=== PATIENT | male | born 1980 | race Caucasian/White ===

== ENCOUNTER 2023-07-27 13:22 | Emergency (ER) | payer OTHER, SELFPAY ==
[2023-07-27 13:43] VITALS: BP 122/59; PULSE 78; RESP 16; TEMP 37.1; O2SAT 97; BMI 24.4
[2023-07-27] MEDS: TET,DIPH,PERTUSS(ACELL),VAC/PF 0.5 ML SYRINGE IM (14:38)
--- NOTE | 2023-07-27 14:48 | ED.WOUNDLAC ---
HPI - Wound/Laceration General Chief Complaint: Wound/Laceration Stated Complaint: Stepped on a nail Time Seen by Provider: 07/27/23 14:39 Source: patient Mode of arrival: Ambulatory History of Present Illness HPI narrative: Otherwise healthy 43-year-old male here for evaluation of an injury that he sustained when he stepped on a nail. He was wearing shoes at the time. It did occur while he was at work. It did puncture is right foot. The nail came out without fracturing. Has had some difficulty with walking. Related Data Previous Rx's Medication Instructions Recorded cephalexin 500 mg capsule 500 mg PO QID 7 days #28 caps 07/27/23 Allergies Allergy/AdvReac Type Severity Reaction Status Date / Time No Known Drug Allergies Allergy Verified 07/27/23 13:43 Review of Systems Musculoskeletal Musculoskeletal: Reports system reviewed and no additional complaints, except as documented Integumentary/Breasts Skin/Breast: Reports system reviewed and no additional complaints, except as documented Hematologic/Lymphatic On Anticoagulants: No Patient History Social History Smoking Status: Never smoker Smoking Status: Never smoker Substance Use Type: does not use Exam Initial Vital Signs Initial Vital Signs: Vital Signs Temperature 98.8 F 07/27/23 13:43 Pulse Rate 78 07/27/23 13:43 Respiratory Rate 16 07/27/23 13:43 Blood Pressure 122/59 L 07/27/23 13:43 Pulse Oximetry 97 07/27/23 13:43 Oxygen Delivery Method Room Air 07/27/23 13:43 Skin Other: Small puncture wound on the plantar aspect of the right foot. No surrounding erythema. No drainage. Extrem Other: Discomfort with palpation of the entrance wound on the bottom of the right foot. Course Orders Ordered: Discontinued Medications Diphtheria/Tetanus/Acell Pertussis (Tet,Diph,Pertuss(Acell),Vac/Pf 0.5 Ml Syringe) 0.5 ml IM .ONCE ONE Stop: 07/27/23 13:48 Last Admin: 07/27/23 14:38 Dose: 0.5 ml Documented By: GENTRY Vital Signs Vital signs: Vital Signs - 8 hr 07/27/23 13:43 Temperature 98.8 F Pulse Rate 78 Respiratory Rate 16 Blood Pressure 122/59 L Pulse Oximetry 97 Oxygen Delivery Method Room Air MDM - Wound/Laceration MDM Narrative Medical decision making narrative: His tetanus was updated. They have low suspicion for retained foreign body. We will start him on antibiotics because it did go through his shoe and was a puncture wound. He was given return precautions and follow-up instructions. He expressed understanding and agreement. Discharge Plan Departure Patient Disposition: Home Clinical Impression: Puncture wound Instructions: DI for Puncture Wound Activity Restrictions/Additional Instructions: Your tetanus was updated today. Start taking the antibiotics as directed. You can take showers like normal. Return to the emergency department for new or worsening symptoms. Prescriptions: New cephalexin 500 mg capsule 500 mg PO QID 7 Days Qty: 28 0RF Stand Alone Forms: Patient Portal/API
== END 2023-07-27 15:02 | disposition home or self-care (01) ==
PROVIDERS: Emergency Provider Emergency Medicine
DX: S91.331A Puncture wound without foreign body, right foot, initial encounter (principal); W45.0XXA Nail entering through skin, initial encounter; Z23 Encounter for immunization; Y99.0 Civilian activity done for income or pay
CPT/HCPCS: 90471; 99283; 90715

== ENCOUNTER 2023-09-15 20:20 | Emergency (ER) | payer OTHER, SELFPAY ==
[2023-09-15 20:29] VITALS: BP 126/75; PULSE 79; RESP 16; TEMP 36.8; O2SAT 97; BMI 25.3
--- NOTE | 2023-09-15 20:32 | DI.RAD.S_ITS ---
PROCEDURE: XR HAND LT MIN 3V INDICATIONS: fall TECHNIQUE: 3 views of the hand(s) acquired. COMPARISON: None. FINDINGS: Bones: There is a nondisplaced fracture involving the 5th proximal phalangeal shaft. Carpal bones are normally aligned. No suspicious bony lesions. Soft tissues: No suspicious soft tissue calcifications. IMPRESSION: Nondisplaced 5th proximal phalangeal shaft fracture. Dictated by: Paige Tse M.D. on 09/15/2023 at 22:27 Approved by: Paige Tse M.D. on 09/15/2023 at 22:28
--- NOTE | 2023-09-15 22:55 | ED.GENADULT ---
HPI - General Adult General Chief complaint: Extremity Injury, Upper Stated complaint: lt hand injury, swelling Time Seen by Provider: 09/15/23 22:48 Source: patient Mode of arrival: Ambulatory History of Present Illness HPI narrative: 43-year-old male who is here for evaluation of a left hand injury. Patient states he tripped in the parking lot landing on his left hand. Did not hit his head. No loss of consciousness. He is right-hand dominant. Related Data Allergies Allergy/AdvReac Type Severity Reaction Status Date / Time No Known Drug Allergies Allergy Verified 09/15/23 20:28 Review of Systems Constitutional Constitutional: Reports system reviewed and no additional complaints, except as documented Musculoskeletal Musculoskeletal: Reports system reviewed and no additional complaints, except as documented Integumentary/Breasts Skin/Breast: Reports system reviewed and no additional complaints, except as documented Neurologic Neurologic: Reports system reviewed and no additional complaints, except as documented Patient History Social History Smoking Status: Never smoker Smoking Status: Never smoker Substance Use Type: does not use Exam Initial Vital Signs Initial Vital Signs: Vital Signs Temperature 98.3 F 09/15/23 20:29 Pulse Rate 79 09/15/23 20:29 Respiratory Rate 16 09/15/23 20:29 Blood Pressure 126/75 09/15/23 20:29 Pulse Oximetry 97 09/15/23 20:29 Oxygen Delivery Method Room Air 09/15/23 20:29 HENMT Head: normal to inspection and normocephalic Skin Other: Bruising along the proximal aspect of the little finger of the left hand. Skin abrasions on the palm of his hand. Extrem Other: Discomfort with palpation and movement of left little finger. Procedures Orthopedic Splinting/Casting Injury #1: Side: left Upper Extremity Injury Location: finger Upper Extremity Immobilizer: aluminum form splint Post splinting neuro exam: intact Post splinting vascular exam: intact Placed by: Nursing Course Orders Ordered: ED Orders 09/15/23 20:32 XR hand LT min 3V Stat Vital Signs Vital signs: Vital Signs - 8 hr 09/15/23 20:29 Temperature 98.3 F Pulse Rate 79 Respiratory Rate 16 Blood Pressure 126/75 Pulse Oximetry 97 Oxygen Delivery Method Room Air Medical Decision Making Imaging Data Extremity x-ray #1: Radiologist's Impression: PROCEDURE: XR HAND LT MIN 3V INDICATIONS: fall TECHNIQUE: 3 views of the hand(s) acquired. COMPARISON: None. FINDINGS: Bones: There is a nondisplaced fracture involving the 5th proximal phalangeal shaft. Carpal bones are normally aligned. No suspicious bony lesions. Soft tissues: No suspicious soft tissue calcifications. IMPRESSION: Nondisplaced 5th proximal phalangeal shaft fracture. MDM Narrative Medical decision making narrative: Patient has a nondisplaced fracture of the proximal left 5th finger. Neurovascularly intact. Placed in a splint. Patient was given care instructions and return precautions. He expressed understanding and agreement. Discharge Plan Departure Patient Disposition: Home Clinical Impression: Finger fracture, left Instructions: DI for Finger Fracture, How to Take Care of Your Splint Activity Restrictions/Additional Instructions: Would recommend that you leave the splint on for the next week. After that you can take it off for short periods of time doing some range of motion with your finger like we discussed. You can take Tylenol/ibuprofen for any discomfort. Return to the emergency department for new symptoms. Stand Alone Forms: Patient Portal/API, Work Release Note
== END 2023-09-15 23:03 | disposition home or self-care (01) ==
PROVIDERS: Emergency Provider Emergency Medicine
DX: S62.617A Displaced fracture of proximal phalanx of left little finger, initial encounter for closed fracture (principal); W01.0XXA Fall on same level from slipping, tripping and stumbling without subsequent striking against object, initial encounter
CPT/HCPCS: 29130; 73130; 99281; 99283